=== PATIENT | female | born 1950 | race Caucasian/White ===

== ENCOUNTER → 2018-03-01 | Outpatient (CLI) | payer OTHER | END | disposition home or self-care (01) | LOC: KCIC MAMMO 10:49 | DX: Z12.31 Encounter for screening mammogram for malignant neoplasm of breast (principal) | CPT/HCPCS: 77063; 77067 ==

== ENCOUNTER → 2021-01-02 | Outpatient (CLI) | payer MEDICARE ==
--- NOTE | 2021-01-02 11:50 | KCIC ---
INDICATION: Screening for osteopenia/osteoporosis. Postmenopausal evaluation COMPARISON: None. TECHNIQUE: Bone densitometry was performed through the lumbar spine and proximal femur. IMPRESSION: Lumbar Spine: BMD: 1.27 T-Score: 2.1 Range: Normal Proximal Femur: BMD: 1.1 T-Score: 1.3 Range: Normal World Health Organization Criteria for Bone Density: T-Score: > -1.0: Normal Range < -1.0 to -2.5: Osteopenic Range < -2.5: Osteoporotic Range Electronically signed by: Primitivo Hines MD (01/02/2021 11:47 AM) [id number]
--- NOTE | 2021-01-02 14:09 | KCIC ---
Bilateral digital screening mammograms: Reason for examination: Routine screening. Comparison is made to previous study dated 03/01/2018. Interpretation was made with the benefit of CAD. The skin and nipples show no abnormalities. No abnormal axillary lymph nodes are seen. The breast par enchyma shows scattered fibroglandular density. (Breast density: Category B.) There are no dominant m asses, suspicious calcifications or architectural distortions. Some benign calcifications are present . Impression: No evidence of malignancy. Recommend routine screening. BI-RADS category 2: Benign "Our facility is accredited by the [employer] Mammography Program." This patient's information has been entered into a reminder system for the patient to be notified wit h the results of her examination and a target date for the next mammogram. Electronically signed by: Nanette Ramos MD (01/02/2021 2:07 PM) [id number]
== END ==
LOC: KCIC MAMMO 09:17
PROVIDERS: ATTEND Family Medicine
DX: Z12.31 Encounter for screening mammogram for malignant neoplasm of breast (principal); N95.1 Menopausal and female climacteric states; N95.9 Unspecified menopausal and perimenopausal disorder
CPT/HCPCS: 77067; 77080

== ENCOUNTER → 2021-04-17 | Outpatient (CLI) | payer MEDICARE ==
--- NOTE | 2021-04-17 13:22 | KCIC ---
EXAM: XR SHOULDER_LEFT 2+ VIEWS 04/17/2021 9:15 AM CLINICAL INDICATION: Chronic left shoulder pain and decreased range of motion COMPARISON: None TECHNIQUE: 3 views of the left shoulder FINDINGS: No acute fracture. Alignment is normal. There is glenohumeral osteoarthrosis with large hu meral head osteophytes. There are possible intra-articular bodies or heterotopic ossification seen in the subacromial space. Mild acromioclavicular hypertrophy. IMPRESSION: 1. Glenohumeral osteoarthrosis with large osteophytes. 2. Ossified bodies versus heterotopic ossification in the subacromial space. Electronically signed by: Nimisha Carmen MD (04/17/2021 1:20 PM) [id number]
== END ==
LOC: KCIC 08:59
PROVIDERS: ATTEND Family Medicine
DX: M19.012 Primary osteoarthritis, left shoulder (principal); M25.712 Osteophyte, left shoulder
CPT/HCPCS: 73030